=== PATIENT | male | born 2000 | race Caucasian/White ===

== ENCOUNTER 2023-07-17 22:13 | Emergency (ER) | payer OTHER ==
[~2023-07-17] VITALS: Ht 182.9 cm; Wt 88.5 kg
[2023-07-17 22:33] VITALS: BP 154/80; TEMP 98.2
[2023-07-17] MEDS ORDERED: IBUP-1957 PO (22:44)
[2023-07-17] MEDS ORDERED: AMOX875T2 PO (22:44)
[2023-07-17] MEDS ORDERED: KETOROLAC TROMETHAMINE INJ 30 MG/ML VIAL ONE (22:55)
[2023-07-17] MEDS ORDERED: AMOXICILLIN TRIHYDRATE 250 MG CAPSULE ONE (22:56)
[2023-07-17] MEDS: AMOXICILLIN TRIHYDRATE 500 MG CAPSULE PO ONE (23:03)
[2023-07-17] MEDS: KETOROLAC TROMETHAMINE INJ 60 MG/2 ML VIAL IM ONE (23:03)
[2023-07-17 23:50] VITALS: O2SAT 99
== END 2023-07-17 23:50 | disposition home or self-care (01) ==
LOC: ER 22:21
DX: H66.93 Otitis media, unspecified, bilateral (principal)
CPT/HCPCS: 99283; 96372; J1885